=== PATIENT | female | born 1940 | race Caucasian/White ===

== ENCOUNTER → 2017-01-05 | Outpatient (CLI) | payer MEDICARE ==
--- NOTE | 2017-01-05 15:39 | CT ---
EXAMINATION TYPE: CT brain wo con DATE OF EXAM: 01/05/2017 COMPARISON: NONE HISTORY: Patient poor historian. Patient shows signs of dementia. CT DLP: 776.2 mGycm Automated exposure control for dose reduction was used. FINDINGS: There is extensive left maxillary sinusitis. Exam is limited due to motion artifact. There is extensive generalized degenerative change with a greater frontal lobe component. Slightly gr eater central component which can also be associated with normal pressure hydrocephalus. Areas of low attenuation within the white matter are nonspecific but most typical remote microvascula r ischemia. There is soft tissue fullness along the posterior margin of the mastoid air cell on the right which c ould be related to a small extra-axial lesion or meningioma. Recommend MRI with contrast. IMPRESSION: EXTENSIVE GENERALIZED DEGENERATIVE CHANGE WITH A GREATER CENTRAL COMPONENT WHICH RAISES THE POSSIBILI TY OF NORMAL PRESSURE HYDROCEPHALUS. NONSPECIFIC WHITE MATTER CHANGES MOST TYPICAL REMOTE MICROVASCUL AR ISCHEMIA. 1.2 CM SOFT TISSUE DENSITY ALONG THE POSTERIOR MARGIN OF THE RIGHT MASTOID AIR CELLS MAY REPRESENT AN EXTRA-AXIAL LESION SUCH A MENINGIOMA. FOLLOW-UP WITH MRI RECOMMENDED. OTHER NEOPLASMS NOT ENTIREL Y EXCLUDED BY CT SCAN. SEVERE LEFT MAXILLARY SINUSITIS.
== END | disposition home or self-care (01) ==
LOC: RADCTMAIN 15:14
PROVIDERS: ATTEND Family Medicine
DX: G93.89 Other specified disorders of brain (principal); R90.82 White matter disease, unspecified; F03.90 Unspecified dementia, unspecified severity, without behavioral disturbance, psychotic disturbance, mood disturbance, and anxiety
CPT/HCPCS: 70450

== ENCOUNTER → 2017-01-28 | Outpatient (CLI) | payer MEDICARE, OTHER ==
[2017-01-28 14:02] LABS: Blood Urea Nitrogen 22 mg/dL (7-17); Non-African American GFR(MDRD) >60 (>60 ml/min/1.73 sqM)
--- NOTE | 2017-01-28 16:21 | MR ---
EXAMINATION TYPE: MR brain and iac wo/w con DATE OF EXAM: 01/28/2017 COMPARISON: CT brain dated 01/05/2017 HISTORY: benign neoplasm of cerebral meninges TECHNIQUE: Multiplanar, multisequence images of the brain and brainstem-IAC is performed without and with IV con trast, utilizing 7.5 mL intravenous Gadavist . FINDINGS: Diffusion weighted images demonstrate no evidence of a recent infarct or other diffusion ab normality. There is symmetric prominence of the peripheral sulci and ventricular system there may re late to dementia or age-related volume loss. In keeping with this there is generalized thinning of th e corpus callosum. Atrophy is most pronounced at the frontal and temporal regions. Numerous foci of T 2 hyperintensity are scattered throughout the periventricular and subcortical white matter most confl uent in the romero radiata. These are likely on the basis of chronic microangiopathy and do not enhan ce. There is a lentiform smoothly marginated extra-axial mass to the right cerebellar pontine angle measu ring approximately 1.6 x 0.9 x 1.3 cm in transverse by anterior posterior by craniocaudal dimension. This is T1 and T2 isointense with nearly homogeneous enhancement. This mass abuts but does not appear to place significant mass effect upon the right 9th and 10th (glossopharyngeal and vagus) nerves. Th is is seen on series 701 image 11 and 12. There is no extra-axial fluid collection. Midline structures demonstrate normal morphology. The craniocervical junction appears within normal limits. The dural venous sinuses appear patent. The visualized sinuses demonstrate minimal mucosal t hickening of the ethmoid and left maxillary sinus. Small amount of fluid is also seen within the mast oid air cells. The globes are intact. IMPRESSION: 1. 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 2. Marked volume loss that appears to have a frontotemporal distribution and could relate to dimensio n the appropriate clinical setting or could be age related. 3. Nonspecific white matter change, likely on the basis of microangiopathy, moderate in degree.
== END | disposition home or self-care (01) ==
LOC: RADMRIMAIN 13:22
PROVIDERS: ATTEND Family Medicine
DX: D32.0 Benign neoplasm of cerebral meninges (principal); G93.9 Disorder of brain, unspecified
CPT/HCPCS: 82565; 84520; 70553; 36415; A9581